=== PATIENT | female | born 1970 | race African-American/Black ===

== ENCOUNTER → 2019-01-02 15:11 | Outpatient (CLI) | payer OTHER | END | disposition home or self-care (01) | LOC: D.RAD 11:45 | PROVIDERS: ATTEND Internal Medicine Pulmonary Disease | DX: J20.9 Acute bronchitis, unspecified (principal) ==

== ENCOUNTER 2019-06-24 07:05 | Emergency (ER) | payer BC ==
[~2019-06-24] VITALS: Ht 157.5 cm; Wt 122.7 kg
[2019-06-24 07:07] VITALS: Ht 157.5 cm; Wt 122.7 kg
[2019-06-24] MEDS ORDERED: PROVENTIL/2.5 MG/3 M (07:08)
[2019-06-24] MEDS ORDERED: PAXIL10 MG/5 ML (07:08)
[2019-06-24] MEDS ORDERED: ADDERALL 5 MG TA5 M1 (07:08)
[2019-06-24] MEDS ORDERED: KEFLEX500 MG PO (07:23)
[2019-06-24] MEDS ORDERED: PREDNISONE20 MG PO (07:23)
[2019-06-24 08:23] VITALS: BP 160/74
== END 2019-06-24 08:24 | disposition home or self-care (01) ==
LOC: D.ER 07:05
DX: J45.909 Unspecified asthma, uncomplicated (principal)

== ENCOUNTER 2019-10-14 12:25 | Observation (INO) | payer SELFPAY ==
[~2019-10-14] VITALS: Ht 157.5 cm; Wt 125.9 kg
[2019-10-14 13:01] LABS: BASOPHILS 0.3 % (0-2); EOSINOPHILS 2.3 % (0-7); HEMATOCRIT 40.7 % (36.0-48.0); HEMOGLOBIN 13.2 g/dL (12-16); IMMATURE GRANULOCYTES 0.3 % (0-5); LYMPHOCYTES 27.8 % (15-50); MCH 28.3 pg (26.0-34.0); MCHC 32.4 g/dL (31.0-37.0); MCV 87.2 fL (80.0-100.0); MEAN PLATELET VOLUME 9.7 fL (7.4-10.4); NEUTROPHILS 64.3 % (40-80); PLATELET COUNT 328 10x3/uL (130-400); RBC 4.67 10x6/uL (4.00-5.40); RDW 13.9 % (11.5-14.5); WBC 11.9 10x3/uL (4.8-10.8)
[2019-10-14 13:14] LABS: APTT 38.9 SECONDS (22.8-39.4); INR 0.97 (0.85-1.17); PROTIME 12.8 SECONDS (11.6-15.0)
[2019-10-14 13:18] LABS: CALC OSMOLALITY 275 mosm/kg (275-300); CALCIUM 8.8 mg/dL (8.5-10.1); CARBON DIOXIDE 29.8 mmol/L (21.0-32.0); CHLORIDE - SERUM 101 mmol/L (98-107); CREATININE - SERUM 0.9 mg/dL (0.6-1.3); GLUCOSE 118 mg/dL (74-106); POTASSIUM - SERUM 3.6 mmol/L (3.5-5.1); SODIUM 138 mmol/L (136-145); UREA NITROGEN 9 mg/dL (7-18); eGFR NON AFRICAN AMERICAN 70 mL/min (90-120)
[2019-10-14 13:36] LABS: ALBUMIN 3.3 g/dL (3.4-5.0); ALKALINE PHOSPHATASE 176 U/L (30-120); ALT (SGPT) 22 U/L (10-68); BILIRUBIN - TOTAL 0.56 mg/dL (0.2-1.3); CKMB 1.1 U/L (0.0-3.6); CREATINE KINASE 130 UL (21-215); MAGNESIUM - SERUM 2.2 mg/dL (1.8-2.4); PRO BNP 12 pg/mL (0-125); PROTEIN - SERUM 7.4 g/dL (6.4-8.2); TROPONIN-I < 0.017 ng/mL (0.000-0.060)
--- NOTE | 2019-10-14 15:50 | NUR ---
RECEIVED PT TO ROOM 2132 VIA WHEELCHAIR, PT WAS ABLE TO AMBULATE FROM WHEELCHAIR TO BED WITH STEADY GATE. PT A/O X4, AUDIBLE WHEEZING NOTED. LT UPPER ARM IV SL. ORIENTED PT TO ROOM AND CALL LIGHT, WILL ASSESS PT AND START PLAN OF CARE.
[2019-10-14 16:23] VITALS: Ht 157.5 cm; Wt 125.9 kg
--- NOTE | 2019-10-14 19:36 | NUR ---
REPORT CALLED TO [facility]. PT WILL BE TRANSFERED TO FLOOR VIA WHEELCHAIR.
[2019-10-15 07:08] LABS: BASOPHILS 0.1 % (0-2); EOSINOPHILS 0 % (0-7); HEMATOCRIT 40.5 % (36.0-48.0); HEMOGLOBIN 13.1 g/dL (12-16); IMMATURE GRANULOCYTES 0.3 % (0-5); LYMPHOCYTES 12.5 % (15-50); MCH 28.2 pg (26.0-34.0); MCHC 32.3 g/dL (31.0-37.0); MCV 87.3 fL (80.0-100.0); MEAN PLATELET VOLUME 9.9 fL (7.4-10.4); MONOCYTES 1.3 % (2-11); NEUTROPHILS 85.8 % (40-80); PLATELET COUNT 376 10x3/uL (130-400); RBC 4.64 10x6/uL (4.00-5.40); RDW 13.9 % (11.5-14.5)
[2019-10-15 07:10] LABS: WBC 18.7 10x3/uL (4.8-10.8)
--- NOTE | 2019-10-15 07:10 | NUR ---
PT RESTING IN BED. NO SIGNS OF DISTRESS. IV TO LEFT UPPER ARM PATENT NO REDNESS OR TENDERNESS. DENIES ANY FURTHER NEED AT THIS TIME. CALL LIGHT IN REACH. BED LOW POSITION. FAMILY AT BEDSIDE AT THIS TIME.
[2019-10-15 07:37] LABS: ALBUMIN 3.2 g/dL (3.4-5.0); ALKALINE PHOSPHATASE 170 U/L (30-120); ALT (SGPT) 21 U/L (10-68); BILIRUBIN - TOTAL 0.48 mg/dL (0.2-1.3); CALCIUM 8.9 mg/dL (8.5-10.1); CARBON DIOXIDE 28.5 mmol/L (21.0-32.0); CHLORIDE - SERUM 99 mmol/L (98-107); CREATININE - SERUM 1.1 mg/dL (0.6-1.3); PROTEIN - SERUM 8.1 g/dL (6.4-8.2); SODIUM 135 mmol/L (136-145); TROPONIN-I < 0.017 ng/mL (0.000-0.060); eGFR NON AFRICAN AMERICAN 56 mL/min (90-120)
[2019-10-15 07:42] LABS: CALC OSMOLALITY 275 mosm/kg (275-300); GLUCOSE 199 mg/dL (74-106); POTASSIUM - SERUM 4.2 mmol/L (3.5-5.1); UREA NITROGEN 12 mg/dL (7-18)
[2019-10-15 08:04] VITALS: BP 123/77
--- NOTE | 2019-10-15 08:34 | HP ---
PATIENT: SHOAIB WYLIE MEDICAL RECORD: [id number] ACCOUNT: [id number] LOCATION:[facility] [id number] : 70 ADMISSION DATE: 10/14/19 PCP: DON MERINO MD HISTORY AND PHYSICAL EXAMINATION CHIEF COMPLAINT: Chest pain and wheezing. HISTORY OF PRESENT ILLNESS: Sergei is a 49-year-old -Citizen Of [place] female with a long history of asthma. She presented to the ER today complaining of chest pain, nausea, sweating that started this morning and also, heartburn and wheezing. In the ER, she was felt to be significantly wheezing and lungs were quite "quite tight." Her vital signs were fairly stable. She has never had a history of heart disease. In the ER, she was given breathing treatments 2 or 3 times continued to wheeze and it was felt she needed to be admitted overnight. The patient is worried more about her chest pain. She is wheeze for an awful long time, never had any known heart problems. PAST MEDICAL HISTORY: Asthma, anxiety, depression, and attention deficit disorder. PAST SURGICAL HISTORY: Left rotator cuff repair 03/2017 at [facility]. She has also had a cholecystectomy. DRUG ALLERGIES: None. HOME MEDICATIONS: Adderall 20 mg twice a day, Paxil 20 mg 2 a day, lorazepam 1 mg twice a day p.r.n. anxiety, Ventolin HFA 2 puffs q.4-6 hours p.r.n. wheeze, lisinopril 10 mg once a day and albuterol for nebulizer q.4-6 hours. HABITS: She never smoked. No alcohol or drugs. SOCIAL HISTORY: She is . She is an RN working at a local longterm. FAMILY HISTORY: Father is alive with history of osteoarthritis and diabetes. Mother is alive with history of hypertension and some sort of cancer. REVIEW OF SYSTEMS: GENERAL: No major weight changes. HEENT: No particular sinus or allergy problems. RESPIRATORY: Long history of asthma. She is now seeing Dr. Nation for this. CARDIAC: No chest pains, no palpitations. No history of heart disease. GASTROINTESTINAL: No significant diarrhea, constipation, or heartburn. GENITOURINARY: No significant problems there. MUSCULOSKELETAL: No significant arthritic aches and pains. NEUROLOGIC: No migraines or seizures. PSYCHIATRIC: She has had some anxiety. She has depression. PHYSICAL EXAMINATION: VITAL SIGNS: Temperature 98.1, pulse 88, respirations 12, blood pressure 135/79, and O2 sat 96%. This evening, she is awake and alert, no acute distress. She is a good historian. at bedside. HEENT: Grossly within normal limits. NECK: Supple. No JVD or bruit. HEART: Regular rate and rhythm. LUNGS: Fairly clear at this time. HISTORY AND PHYSICAL [id number] SHOAIB WYLIE HEART: Regular. ABDOMEN: Soft, flat, nontender. EXTREMITIES: No edema. NEUROLOGIC: Unremarkable. LABORATORY DATA: ABG in the ER, pH 7.467, pCO2 of 31.5, and pO2 88. CBC showed a white count of 11,900, hemoglobin 13.2. Basic metabolic panel is all normal. Liver functions are normal. INR 0.97. Chest x-ray shows nothing acute. ASSESSMENT: 1. Asthma exacerbation. 2. Chest pain. PLAN: We will get serial cardiac enzymes. We will consult cardiology in the morning. Dr. Nation has been consulted for her wheezing. Other tests and procedures as warranted. TRANSINT:[id number] Voice Confirmation ID: [id number] DOCUMENT ID: [id number] DON MERINO MD at 0834 CC: [id number] DICTATION DATE: 10/14/192337 TECHNICAL ILLUSTRATOR: 10/15/19 0613 ADM IN [id number] [place] [address]
--- NOTE | 2019-10-15 10:47 | NUR ---
DISCHARGE INSTRUCTIONS GIVEN. SEEMS TO UNDERSTAND INSTRUCTION. IV OUT TIP INTACT. LEFT WITH HOSPTIAL STAFF TO GO HOME IN PERSONAL RIDE. NO SIGNS OF DISTRESS AT THIS TIME
== END 2019-10-15 10:48 | disposition home or self-care (01) ==
LOC: D.ER 12:25 → D.MS 14:43 → D.M2 14:43 → OBSVTIME 15:04 → D.MS 19:34
PROVIDERS: Family Medicine; ADMIT Family Medicine; ATTEND Family Medicine
DX: J45.901 Unspecified asthma with (acute) exacerbation (principal); R07.9 Chest pain, unspecified; K21.9 Gastro-esophageal reflux disease without esophagitis; E66.01 Morbid (severe) obesity due to excess calories; Z68.43 Body mass index [BMI] 50.0-59.9, adult